=== PATIENT | female | born 1970 | race Caucasian/White ===

== ENCOUNTER → 2019-05-02 | Outpatient (CLI) | payer OTHER ==
[~2019-05-02] MED LIST: CYCL10TA2 PO; IBUP-1027 PO; LIDOCAINE WITH 8.4% SOD BICARB 3 ML DISP.SYRIN. ONE; MULT1TAB52 PO; NORG1TAB70 PO; ZOLP10TA PO
--- NOTE | 2019-05-02 08:45 | RAD ---
ABDOMEN COMPLETE History: Elevated transaminase level. Comparison: None. Technique: Sonographic examination of the abdomen was performed and multiple grayscale and color Doppler static images were obtained. Findings: Liver demonstrates increased echogenicity. The liver measures 20.3 cm. Portal flow is patent Common bile duct measures 4.3 mm in diameter. Prior cholecystectomy. Visualized pancreas is homogeneous. The right kidney measures 11.8 x 4.9 x 4.0 cm. No hydronephrosis. The left kidney measures 11.1 x 5.6 x 5.6 cm. No hydronephrosis. The spleen measures 11.3 cm. Visualized portions of the abdominal aorta and IVC are normal. IMPRESSION: 1. Hepatomegaly with increased echotexture, may indicate steatosis. Electronically signed by: Manuel Moon DO (05/02/2019 8:42 AM) [id number]
== END | disposition home or self-care (01) ==
LOC: US 08:46
PROVIDERS: ATTEND Family Medicine
DX: R16.0 Hepatomegaly, not elsewhere classified (principal); Z90.49 Acquired absence of other specified parts of digestive tract
CPT/HCPCS: 76700

== ENCOUNTER → 2020-09-23 | Outpatient (CLI) | payer OTHER ==
[~2020-09-23] MED LIST changes: -LIDOCAINE WITH 8.4% SOD BICARB 3 ML DISP.SYRIN. ONE; +MULT-445 PO; -MULT1TAB52 PO
--- NOTE | 2020-09-23 15:27 | KCIC ---
EXAM: Cervical spine MRI without contrast. HISTORY: Left upper extremity radiculopathy. TECHNIQUE: Multiplanar, multisequence magnetic resonance imaging of the cervical spine was performed without contrast. COMPARISON: None. FINDINGS: There is mild cervical kyphosis. There is no significant listhesis. There is multilevel end plate remodeling with disc space narrowing and osteophytosis. There are few small endplate Schmorl's nodes. There is no suspicious osseous lesion. There is no acute or subacute fracture. The posterior f emil is unremarkable. No convincing spinal cord lesion is seen. At C2-C3, there is mild left facet arthropathy. There is no stenosis. At C3-C4, there is a minimal posterior central disc protrusion. There is mild left facet arthropathy. There is no stenosis. At C4-C5, there is a minimal posterior central disc protrusion superimposed on endplate remodeling. T here is to moderate left facet arthropathy. There is no stenosis. At C5-C6, there is a broad-based posterior disc protrusion superimposed on a disc bulge and endplate osteophytosis. There is uncovertebral arthropathy. There is flattening of the ventral aspect of the s scout cord and mild central canal stenosis measuring 8.2 mm in anterior posterior dimension. At C6-C7, there is a broad-based left paracentral to lateral recess disc protrusion superimposed on a disc bulge and endplate osteophytosis. There is uncovertebral arthropathy. There is mild flattening of the left ventral aspect of the spinal cord and mild central canal stenosis measuring 7.7 mm in ant erior posterior dimension. At C7-T1 there is a left lateral recess to foraminal disc protrusion superimposed on a disc bulge and endplate osteophytosis. There is uncovertebral arthropathy. There is left lateral recess stenosis an d moderate inferior left foraminal stenosis. IMPRESSION: Multilevel degenerative change involving the cervical spine, described in detail above. This in mild central canal stenosis at C5-C6 and C6-C7 and effacement of the left lateral recess and moderate infe rior left foraminal stenosis at C7-T1. Electronically signed by: Meenakshi Coe MD (09/23/2020 3:25 PM) [id number]
== END ==
LOC: KCIC MRI 14:33
PROVIDERS: ATTEND Family Medicine
DX: M47.22 Other spondylosis with radiculopathy, cervical region (principal); M48.02 Spinal stenosis, cervical region
CPT/HCPCS: 72141

== ENCOUNTER → 2020-10-08 | Outpatient (CLI) | payer OTHER ==
[~2020-10-08] MED LIST changes: +CETI10TA74 PO; +DOXY25TA49 PO; +HYDR-2769 PO; +LEVO75TA5 PO; +SERT100T PO; +TRAM50TA PO
--- NOTE | 2020-10-08 09:01 | PDOC1 ---
INITIAL PAIN CONSULT DATE OF SERVICE: DOS: DATE: 10/08/20 TIME: 08:55 CHIEF COMPLAINT: Chief Complaint: Neck and left upper extremity pain HISTORY OF PRESENT ILLNESS: 50-year-old female presents with history of pain base the neck and left shoulder left upper extremity left arm and hand for about 1 to 2 months, not the result of any specific injury or accident that she is aware but getting worse with time repetitive motions are aggravating the pain as well as lifting weightbearing and reaching especially reaching her hand above the level of her shoulder on the left side patient reports difficult for her to drive do any repetitive motions reaching lifting and difficulty sleeping wakes her from sleep least 3-4 times a night patient reports is not effective bowel bladder control or ability to walk is coming much more tender patient has had chiropractic treatment in the past as well as exercise also physical therapy and she is currently doing the exercises from those physical therapies currently and doing them daily especially stretching and strengthening of the left arm but is not been helping the pain is actually making it slightly worse patient reports he is taking ibuprofen as well as Tylenol has not been effectively helpful also tramadol and hydrocodone both of which do help and she is taking both of those as most recently as today. Patient has had some injections in the past about 2013 which were helpful as we ll. Patient rates her disability rating 0-10 10 being the worst as a 7 with family home responsibilities and social activity 10 with recreation 9 with occupation 10 with self-care and fourth life support activities. Patient did have an MRI scan of the cervical spine showing degenerative changes mild central canal stenosis C5-6 and C6-7 effacing the left lateral recess and moderate inferior left foraminal stenosis at C6-7 and C7-T1. PAST MEDICAL HISTORY: PMH: Dizziness, arthritis, hypothyroidism PREVIOUS SURGERIES: Past Surgical Hx: Tonsillectomy, cholecystectomy CURRENT MEDICATIONS: Current Meds: Active Scripts Medications Dose Route/Sig Max Daily Dose Days Date Category Multivitamins (Multivitamin) 1 Each Tablet 1 Tab PO DAILY 05/08/14 Reported Ortho Tri-Cyclen (Norgestimate-Ethinyl Estradiol) 1 Each Tablet 1 Each PO DAILY 05/08/14 Reported Cyclobenzaprine Hcl 10 Mg Tablet 10 Mg PO TID PRN 05/08/14 Reported Ambien (Zolpidem Tartrate) 10 Mg Tablet 10 Mg PO HS PRN 05/08/14 Reported Ibuprofen 400 Mg Tablet 600 Mg PO TID 05/08/14 Reported ALLERGIES; Allergies: Coded Allergies: codeine (Unverified Allergy, Severe, Nausea and Vomiting rash, 05/08/14) cephalexin (Unverified Allergy, Unknown, rash vomiting, 05/08/14) FAMILY HISTORY: Family Hx: Thyroid disease, depression SOCIAL HISTORY: Social Hx: Patient drinks alcohol occasionally but only about 3 times a year, does not use any illegal illicit recreational drugs does not smoke is lives with her spouse lives locally in [facility]. REVIEW OF SYSTEMS: ROS: Positive for those items mentioned in history of present illness, all systems are reviewed, otherwise negative ,and are complete full and well-documented on patient's chart. PHYSICAL EXAM: VS: Blood pressure is 132/86 pulse 81 respirations 18 temperature 97.7 patient is 5 feet 3 inches weight is 234 pounds PE: PHYSICAL EXAMINATION: GENERAL: The patient is awake, alert, oriented, appropriate, very pleasant demeanor HEENT: Shows normocephalic, atraumatic. Extraocular movements are intact and symmetrical. Oral cavity: Mucous membranes moist and pink. Dentition is intact. NECK: Shows anterior throat supple without palpable lymphadenopathy noted. Swa llow reflex symmetrical. CHEST: Shows normal on inspection. Breath sounds are clear bilaterally, no rales rhonchi wheezes auscultated. HEART: Shows S1, S2 clear. No murmurs auscultated. ABDOMEN: Soft, nontender, nondistended, obese. No palpable organomegaly is noted. No rebound or guarding demonstrated. BACK: Shows spine grossly in the midline. Normal-appearing cervical lordotic curvature. Cervical paraspinous muscles show symmetrical with inspection, on palpation some moderate tenderness diffusely in the inferior aspect cervical paraspinous musculature left greater than right also into the superior medial trapezius on the left but no trigger points no atrophy hypertrophy or asymmetry. Patient shows full rotation of motion cervical spine with some moderate tenderness with far left lateral rotation past 45 degrees as well as with extension but not with forward flexion or right lateral rotation. There is slightly increased thoracic kyphosis, some minor flattening of the lumbar lordotic curvature. EXTREMITIES: Upper extremities show deep tendon reflexes 2+ in the biceps and triceps tendons. Motor exam is 5 on a scale of 5 with right strength, biceps and triceps flexion and 4/5 on the left. Peripheral pulses are 2+ radial. No peripheral edema is noted bilaterally. Upper extremities are warm and dry to touch, equal in color and appearance. Shoulder shrug strong and intact without loss strength on resistance as is abduction of the shoulder 90 degrees without loss of resistance but with some moderate tenderness reported on the left side only. SKIN: Shows warm and dry, good turgor. No edema. No sores, rashes or bruising throughout. IMPRESSION: Impression: 50-year-old female approximately 1 to 2-month history of increasing pain base of neck left upper extremity in a radicular fashion following a C6-7 dermatomal distribution. MRI scan cervical spine as noted Arthritis Dizziness Obesity Plan: Options were discussed the patient. Conservative management is continued physical therapies interventional techniques. Patient is doing physical therapy is currently and has tried multiple medications she is interested in interventional techniques. We discussed a cervical epidural steroid injection using descriptions as well as anatomical models to describe the procedure. Patient will wait for preauthorization with her insurance provider, once this is obtained when to return for translaminar C6-7 level cervical epidural steroid injection at that time. In the meantime patient will continue with stretching strength exercise as well as oral analgesics and anti-inflammatories as currently. ARABELLA SINGH MD Oct 08, 2020 09:01
== END | disposition home or self-care (01) ==
LOC: PNCL 08:18
PROVIDERS: ATTEND Anesthesiology
DX: M54.2 Cervicalgia (principal); M79.602 Pain in left arm; E03.9 Hypothyroidism, unspecified; E66.9 Obesity, unspecified; M19.90 Unspecified osteoarthritis, unspecified site; Z90.49 Acquired absence of other specified parts of digestive tract; Z98.890 Other specified postprocedural states; Z88.5 Allergy status to narcotic agent; Z88.1 Allergy status to other antibiotic agents; Z79.899 Other long term (current) drug therapy
CPT/HCPCS: 99214; G0463

== ENCOUNTER → 2020-11-06 | Outpatient (CLI) | payer OTHER ==
--- NOTE | 2020-11-06 08:37 | PDOC ---
Progress Note - Pain Clinic Date of Service: DOS: DATE: 11/06/20 TIME: 08:32 Diagnosis: Dx: Cervical radiculopathy with cervical degenerative disease and cervical spinal stenosis History or Present Illness: HPI: 50-year-old female returns for follow-up status post cervical epidural injection x1. Patient reports about 60% improvement in the neck and left upper extremity pain returning after she returned to work about 2 weeks later. Patient reports for that she was doing much better with the left upper extremity pain and was using her arm with much more improvement in strength as well as mobility. Patient reports the pain is returning now base the neck shoulder on the left side left arm posterior deltoid into the trapezius into the posterior and anterior forearm and thumb and first and second fingers with some tingling and numbness as well patient describes aching in the neck tight in the neck tingling in the arm and hand radiating as described. Patient reports the pain is a 9 on scale 10 is worst over the past week 5 "3 its least is a 3 today. Patient reports prior to that she was doing much better with work activities, sleeping well. Patient is taking new medication Aleve instead of ibuprofen which seems to be doing better taking it twice daily. We discussed other medications and will also add tramadol as she has a 30-day restriction on when she can get another injection to like to proceed with that in the meantime we will prescribe tramadol with instructions side effects to be aware of discussed. Physical Exam: VS: Blood pressure is 134/84 pulse 85 respirations 18 temperature is 98.4 F height is 5 feet 3 inches weight is 237 pounds PE: PHYSICAL EXAMINATION: GENERAL: The patient is awake, alert, oriented, appropriate, very pleasant in demeanor HEENT: Shows normocephalic, atraumatic. Extraocular movements are intact and symmetrical. Oral cavity: Mucous membranes moist and pink. Dentition is intact. NECK: Shows anterior throat supple without palpable lymphadenopathy noted. Swallow reflex symmetrical. CHEST: Shows normal on inspection. Breath sounds are clear bilaterally, no rales rhonchi wheeze also. HEART: Shows S1, S2 clear. No murmurs auscultated. ABDOMEN: Soft, nontender, nondistended, obese. BACK: Shows spine grossly in the midline. Normal-appearing cervical lordotic curvature. Cervical paraspinous muscles show symmetrical inspection, on palpation some moderate tenderness diffusely throughout the upper and middle and lower's region paraspinous muscles more on the left than the right without specific trigger points atrophy hypertrophy. Patient shows good rotation motion cervical spine both laterally greater than 45 degrees as well as full extension full forward flexion with only minor pain in the left inferior aspect of the cervical paraspinous musculature without radiation. There is slightly increased thoracic kyphosis, some minor flattening of the lumbar lordotic curvature. EXTREMITIES: Upper extremities show deep tendon reflexes 2+ in the biceps and triceps tendons. Motor exam is 5 on a scale of 5 with right ingot weigher strength, biceps and triceps flexion and 4/5 on the left. Peripheral pulses are 2+ radial. No peripheral edema is noted bilaterally. Upper extremities are warm and dry to touch, equal in color and appearance. SKIN: Shows warm and dry, good turgor. No edema. No sores, rashes or bruising throughout. Procedure: Procedure: Options discussed with the patient. Patient's old chart was reviewed as her current medication regimen updated current view of systems updated today as well. We will preauthorize patient for second cervical epidural steroid injection she did very well after the first injection with pain returning now after work activities resumed and initially had excellent relief but with clinical C6-7 dermatomal distribution radiculopathy returning in the left upper extremity. Again, we will add tramadol and will E scribe this today with instructions side effects aware of discussed. Patient will follow up once preauthorization is obtained we will plan on translaminar approach at the C6-7 level for cervical epidural steroid injection with fluoroscopic guidance. Medication Injected: Med Injected: None Condition at Discharge: Condition at Discharge: Condition at discharge stable. ARABELLA SINGH MD Nov 06, 2020 08:37
== END | disposition home or self-care (01) ==
LOC: PNCL 08:04
PROVIDERS: ATTEND Anesthesiology
DX: M50.10 Cervical disc disorder with radiculopathy, unspecified cervical region (principal); M48.02 Spinal stenosis, cervical region; Z79.899 Other long term (current) drug therapy; Z88.1 Allergy status to other antibiotic agents; Z88.5 Allergy status to narcotic agent
CPT/HCPCS: 99212; G0463

== ENCOUNTER → 2020-11-24 | Outpatient (CLI) | payer OTHER ==
[~2020-11-24] MED LIST changes: +methylPREDNISolone ACETATE 40 MG/ML VIAL. ONE; +methylPREDNISolone ACETATE 80 MG/ML VIAL. ONE
--- NOTE | 2020-11-24 08:51 | PDOC ---
Progress Note - Pain Clinic Date of Service: DOS: DATE: 11/24/20 TIME: 08:48 Diagnosis: Dx: Cervical radiculopathy with cervical degenerative disc disease and cervical spinal stenosis History or Present Illness: HPI: 50-year-old female returns for follow-up status post cervical epidural steroid injection x1. Patient reports about 60% improvement with pain returning now and had been preauthorized for an additional injection patient reports pain is changed somewhat is is more of a aching pain in the left arm tingling in the hand on the left side radiating posterior deltoid posterior triceps and the biceps and forearm in the posterior aspect of the forearm into the hand with numbness and tingling in the fingers patient reports its radiating on and off in intensity worse with activity standing reaching weightbearing also driving patient was doing better she went on a driving trip few days ago reports that the pain was significantly returned patient rates as a 9 on scale 10 is worse over the past week 5 on average to its least is a 5 today. Patient reports no new motor or sensory deficits. Physical Exam: VS: Blood pressure is 133/84 pulse 75 respirations 18 temperature 98.1 F height is 5 feet 3 inches weight is 238 pounds PE: PHYSICAL EXAMINATION: GENERAL: The patient is awake, alert, oriented, appropriate, very pleasant in demeanor HEENT: Shows normocephalic, atraumatic. Extraocular movements are intact and symmetrical. Oral cavity: Mucous membranes moist and pink. Dentition is intact. NECK: Shows anterior throat supple without palpable lymphadenopathy noted. Swallow reflex symmetrical. CHEST: Shows normal on inspection. Breath sounds are clear bilaterally, distant but no rales or rhonchi. HEART: Shows S1, S2 clear. No murmurs auscultated. ABDOMEN: Soft, nontender, nondistended, obese. No palpable organomegaly is noted. BACK: Shows spine grossly in the midline. Normal-appearing cervical lordotic curvature. Cervical paraspinous muscles show symmetrical with inspection, on palpation some moderate tenderness diffusely in inferior aspect cervical paraspinous muscular bilaterally more on the left than right but without atrophy hypertrophy or asymmetry and no trigger points identified. Patient shows good rotation of motion cervical spine with lateral as well as full extension full forward flexion without significant difficulty. There is slightly increased thoracic kyphosis, some minor flattening of the lumbar lordotic curvature. EXTREMITIES: Upper extremities show deep tendon reflexes 2+ in the biceps and triceps tendons. Motor exam is 5 on a scale of 5 with right direct sales representative, biceps and triceps flexion and 4/5 on the left. Peripheral pulses are 2 radial. No peripheral edema is noted bilaterally. Upper extremities are warm and dry to touch, equal in color and appearance. SKIN: Shows warm and dry, good turgor. No edema. No sores, rashes or bruising throughout. Procedure: Procedure: Options discussed with the patient. Patient chart reviews her current medication regimen updated current review of systems updated today as well. We will proceed with a cervical epidural steroid injection today with fluoroscopic guidance. Risks were discussed including but not limited to: Bleeding, infection, possibility of epidural hematoma and subsequent neurological compromise, dural puncture, headaches, spinal cord and/or nerve damage, side effects of steroid medication, and poor results regarding pain control. Patient understands and wished to proceed. Patient will return to clinic in approximate 2 weeks for follow-up, was counseled as return appointment active level and side effects to be aware of. Medication Injected: Med Injected: Procedure cervical epidural steroid injection at the C6-7 level, using local anesthetic under sterile prep and drape using C-arm fluoroscopic guidance under local anesthesia medications injected ;120 mg Depo-Medrol +5 mL normal saline and 2 mL contrast; condition at discharge is stable patient tolerated procedure well. and had no complications Condition at Discharge: Condition at Discharge: Condition at discharge stable, patient already procedure well and had no complications. ARABELLA SINGH MD Nov 24, 2020 08:51
--- NOTE | 2020-11-24 08:52 | PDOC4 ---
Procedure Note: ICD 10 Code: ICD 10 Code: M54.12 M 48.02 M50.30 Procedure Note: Patient was consented for cervical epidural steroid injection with fluoroscopic guidance. Risks were discussed including but not limited to: Bleeding, infection, possibility of epidural hematoma and subsequent neurological compromise, dural puncture, headaches, spinal cord and/or nerve damage, side effects of steroid medication, and poor results regarding pain control. Patient understands and wished to proceed. Procedure cervical epidural steroid injection at the C6-7 level, using local anesthetic under sterile prep and drape using C-arm fluoroscopic guidance under local anesthesia medications injected ;120 mg Depo-Medrol +5 mL normal saline and 2 mL contrast; condition at discharge is stable patient tolerated procedure well. and had no complications ARABELLA SINGH MD Nov 24, 2020 08:52
== END | disposition home or self-care (01) ==
LOC: PNCL 07:59
PROVIDERS: ATTEND Anesthesiology
DX: M50.10 Cervical disc disorder with radiculopathy, unspecified cervical region (principal); M48.02 Spinal stenosis, cervical region; Z79.899 Other long term (current) drug therapy; Z88.1 Allergy status to other antibiotic agents; Z88.5 Allergy status to narcotic agent
CPT/HCPCS: 62321; J1030; J1040

== ENCOUNTER → 2020-12-09 | Outpatient (CLI) | payer OTHER ==
[~2020-12-09] MED LIST changes: -methylPREDNISolone ACETATE 40 MG/ML VIAL. ONE; -methylPREDNISolone ACETATE 80 MG/ML VIAL. ONE
--- NOTE | 2020-12-09 09:32 | PDOC ---
Progress Note - Pain Clinic Date of Service: DOS: DATE: 12/09/20 TIME: 09:29 Diagnosis: Dx: Cervical radiculopathy with cervical degenerative disc disease and cervical spinal stenosis History or Present Illness: HPI: 50-year-old female returns for follow-up status post cervical epidural steroid injection x2. 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 Patient reports no new motor or sensory deficits no bowel or bladder incontinence. Physical Exam: VS: Blood pressure is 135/90 pulse 85 respirations 18 temperature 90.5 F height 5 feet 3 inches weight is 240 pounds PE: PHYSICAL EXAMINATION: GENERAL: The patient is awake, alert, oriented, appropriate, very pleasant in demeanor HEENT: Shows normocephalic, atraumatic. Extraocular movements are intact and symmetrical. Oral cavity: Mucous membranes moist and pink. Dentition is intact. NECK: Shows anterior throat supple without palpable lymphadenopathy noted. Swallow reflex symmetrical. CHEST: Shows normal on inspection. Breath sounds are clear bilaterally, no rales rhonchi or wheezes auscultated. HEART: Shows S1, S2 clear. No murmurs auscultated. ABDOMEN: Soft, nontender, nondistended, obese. No palpable organomegaly is noted. BACK: Shows spine grossly in the midline. Normal-appearing cervical lordotic curvature. Cervical paraspinous muscles show symmetrical inspection with palpation some moderate tenderness diffusely in the middle and inferior aspect of the cervical paraspinous musculature more the left than the right but without significant radiation without trigger points or asymmetry. Patient shows full rotation of motion cervical spine both laterally as well as full extension full forward flexion without significant difficulty. There is slightly increased thoracic kyphosis, some minor flattening of the lumbar lordotic curvature. EXTREMITIES: Upper extremities show deep tendon reflexes 2+ in the biceps and triceps tendons. Motor exam is 5 on a scale of 5 with right licensed weigher, biceps and triceps flexion and 4/5 on the left. Peripheral pulses are 2+ radial. No peripheral edema is noted bilaterally. Upper extremities are warm and dry to touch, equal in color and appearance. SKIN: Shows warm and dry, good turgor. No edema. No sores, rashes or bruising throughout. Procedure: Procedure: Options discussed with the patient. Patient's old chart was reviewed as her current medication regimen updated current review of systems updated today as well. We will hold on any further injections at this time as patient doing much better. Patient was encouraged increase activity as tolerated maintain stretching strength exercises as well as oral analgesics as currently. At this time patient will follow up on as-needed basis. Medication Injected: Med Injected: None Condition at Discharge: Condition at Discharge: Condition at discharge is stable. ARABELLA SINGH MD Dec 09, 2020 09:32
== END ==
LOC: PNCL 08:54
PROVIDERS: ATTEND Anesthesiology
DX: M48.02 Spinal stenosis, cervical region (principal); M50.10 Cervical disc disorder with radiculopathy, unspecified cervical region
CPT/HCPCS: 99212; G0463

== ENCOUNTER → 2021-06-18 | Outpatient (CLI) | payer OTHER ==
[~2021-06-18] MED LIST changes: +CYCL10TA19 PO; -CYCL10TA2 PO
--- NOTE | 2021-06-18 11:22 | PDOC ---
Progress Note - Pain Clinic Date of Service: DOS: DATE: 06/18/21 TIME: 11:17 Diagnosis: Dx: Cervical radiculopathy with cervical degenerative disease and cervical spinal stenosis History or Present Illness: HPI: 50-year-old female presents with complaints of pain base the neck and left upper extremity and posterior shoulder patient reports is getting worse with repetitive motions lifting weightbearing and reaching overhead with the left arm patient reports it wakes her from sleep at least 2-3 times a night reports is aching and sharp in the base the neck shooting in the left arm into the fingers and with numbness and tingling in the thumb and first finger patient report is radiating constant can be severe at times as well also some tingling in the third and fourth fingers as well as the pinky at times patient reports is a 10 on scale 10 is worse over the past week 8 on average 4 to [place] is an 8 t mery. Patient reports loss of function but significant fatigability the left arm with repetitive motions especially driving the car with her left arm on the steering wheel. Reviewed patient's MRI scan showing C6-7 broad-based left paracentral to lateral recess disc retrusion superimposed on disc bulge endplate osteophytosis with mild central canal stenosis also C7-T1 lateral recess to the left foraminal disc protrusion superimposed on disc bulge and endplate osteophytosis as well. Patient has been doing stretching and strengthening exercises which she had learned at physical therapy in the past as well as heat and massage techniques for the shoulder and arm but without significant reduction in pain. Patient is been taking hydrocodone which is helpful also additional Tylenol and Motrin which helps by about 25% as well. Patient reports no loss of motor function again but significant fatigability with the left upper extremity Physical Exam: VS: Blood pressure is 132/86 pulse 80 respirations 16 temperature 90.60 Fahrenheit height is 5 foot 3 inches weight is 232 pounds. PE: PHYSICAL EXAMINATION: GENERAL: The patient is awake, alert, oriented, appropriate, very pleasant in demeanor HEENT: Shows normocephalic, atraumatic. Extraocular movements are intact and symmetrical. Patient wearing eyeglasses. Oral cavity: Mucous membranes moist and pink. NECK: Shows anterior throat supple without palpable lymphadenopathy noted. Swallow reflex symmetrical. CHEST: Shows normal on inspection. Breath sounds are clear bilaterally, no rales rhonchi or wheezes auscultated. HEART: Shows S1, S2 clear. No murmurs auscultated. ABDOMEN: Soft, nontender, nondistended. No palpable organomegaly is noted. BACK: Shows spine grossly in the midline. Normal-appearing cervical lordotic curvature. Cervical paraspinous muscles show symmetrical inspection, palpation some moderate tenderness diffusely bilaterally diffusely without significant radiation. Patient shows good rotation motion was of moderate tenderness with extension but not with forward flexion right or left lateral rotation. There is slightly increased thoracic kyphosis, some minor flattening of the lumbar lordotic curvature. EXTREMITIES: Upper extremities show deep tendon reflexes 2+ in the biceps and triceps tendons. Motor exam is 5 on a scale of 5 with right shot core drill operator helper, biceps and triceps flexion and 4/5 on the left. Peripheral pulses are 2+ radial. No peripheral edema is noted bilaterally. Upper extremities are warm and dry to touch, equal in color and appearance. SKIN: Shows warm and dry, good turgor. No edema. No sores, rashes or bruising throughout. Procedure: Procedure: Options were discussed with the patient. Patient's report was reviewed as her current medication regimen updated current review of systems updated today as well. We will preauthorize patient for a cervical epidural steroid injection as she has significant clinical radiculopathy in a C6-7 dermatomal distribution in the left upper extremity. The meantime, patient continue with stretching strength exercises heat and massage applications as well as oral analgesics and hydrocodone as currently. Once approved, patient will return to clinic for translaminar approach C6-7 level fluoroscopic guided cervical epidural steroid injection. Medication Injected: Med Injected: None Condition at Discharge: Condition at Discharge: Condition at discharge is stable. ARABELLA SINGH MD Jun 18, 2021 11:22
== END | disposition home or self-care (01) ==
LOC: PNCL 10:34
PROVIDERS: ATTEND Anesthesiology
DX: M50.10 Cervical disc disorder with radiculopathy, unspecified cervical region (principal); M48.02 Spinal stenosis, cervical region; Z79.899 Other long term (current) drug therapy; Z88.1 Allergy status to other antibiotic agents; Z88.8 Allergy status to other drugs, medicaments and biological substances
CPT/HCPCS: 99212; G0463

== ENCOUNTER → 2021-07-05 | Outpatient (CLI) | payer OTHER ==
[~2021-07-05] MED LIST changes: +DEXAMETHASONE PRES.FREE 10 MG/ML VIAL. ONE; +IOHEXOL 180 MG/ML 10 ML VIAL. ONE
--- NOTE | 2021-07-05 10:20 | PDOC ---
Progress Note - Pain Clinic Date of Service: DOS: DATE: 07/05/21 TIME: 10:16 Diagnosis: Dx: Cervical radiculopathy with cervical degenerative disc disease and cervical spinal stenosis History or Present Illness: HPI: 51-year-old female returns for follow-up status post evaluation and preauthorization for cervical epidural steroid injection. Patient reports still significant pain rating the left upper extremity and shoulder as it was previously patient reports no motor or sensory deficits patient rates her pain a 9 on scale 10 is worse over the past week 6 on average to its least and is a 6 today patient reports is aching and sharp shooting and radiating can be constant unbearable with repetitive motions reaching overhead with her left arm weightbearing with left arm and reaching forward with the left arm with weightbearing. Patient reports no loss of motor function but significant fatigability of the left upper extremity once again. Patient reports the right side is without deficit without pain or lack of ability. Physical Exam: VS: Blood pressure is 141/84 pulse 72 respirations 18 temperature is 98.6 F height is 5 feet 3 inches weight is 231 pounds. PE: PHYSICAL EXAMINATION: GENERAL: The patient is awake, alert, oriented, appropriate, very pleasant in demeanor HEENT: Shows normocephalic, atraumatic. Extraocular movements are intact and symmetrical. Oral cavity: Mucous membranes moist and pink. NECK: Shows anterior throat supple without palpable lymphadenopathy noted. Swallow reflex symmetrical. CHEST: Shows normal on inspection. Breath sounds are clear bilaterally, no rales or rhonchi auscultated. HEART: Shows S1, S2 clear. No murmurs auscultated. ABDOMEN: Soft, nontender, nondistended. No palpable organomegaly is noted. BACK: Shows spine grossly in the midline. Normal-appearing cervical lordotic curvature. Cervical paraspinous muscles show symmetrical inspection, on palpation some moderate tenderness diffusely bilaterally diffusely without significant radiation. Patient has good rotation motion cervical spine both laterally as well as extension and flexion. There is slightly increased thoracic kyphosis, some minor flattening of the lumbar lordotic curvature. EXTREMITIES: Upper extremities show deep tendon reflexes 2+ in the biceps and triceps tendons. Motor exam is 5 on a scale of 5 with right optical glass inspector, biceps and triceps flexion and 4/5 on the left. Peripheral pulses are 2+ radial. No peripheral edema is noted bilaterally. Upper extremities are warm and dry to touch, equal in color and appearance. SKIN: Shows warm and dry, good turgor. No edema. No sores, rashes or bruising throughout. Procedure: Procedure: Options were discussed with the patient. Patient's old heart was reviewed as her current medication regimen updated current review of systems updated today as well. We will proceed with a cervical epidural steroid injection today with fluoroscopic guidance. Risks were discussed including but not limited to: Bleeding, infection, possibility of epidural hematoma and subsequent neurological compromise, dural puncture, headaches, spinal cord and/or nerve damage, side effects of steroid medication, and poor results regarding pain control. Patient understands and wished to proceed. Patient return to the clinic in approximate 4 weeks for follow-up, was counseled as to return appointment, activity level, and side effect to be aware of. Medication Injected: Med Injected: Procedure cervical epidural steroid injection at the C6-7 level, using local anesthetic under sterile prep and drape using C-arm fluoroscopic guidance under local anesthesia medications injected ; 20 mg dexamethasone +5 mL normal saline and 2 mL contrast; condition at discharge is stable patient tolerated procedure well. and had no complications. Condition at Discharge: Condition at Discharge: Condition at discharge is stable, patient tolerated the procedure well had no complications. ARABELLA SINGH MD Jul 05, 2021 10:20
--- NOTE | 2021-07-05 10:21 | PDOC4 ---
Procedure Note: ICD 10 Code: ICD 10 Code: M54.12 M50.30 M4 8.02 Procedure Note: Patient was consented for cervical epidural steroid injection with fluoroscopic guidance. Risks were discussed including but not limited to: Bleeding, infection, possibility of epidural hematoma and subsequent neurological compromise, dural puncture, headaches, spinal cord and/or nerve damage, side effects of steroid medication, and poor results regarding pain control. Patient understands and wished to proceed. Procedure cervical epidural steroid injection at the C6-7 level, using local anesthetic under sterile prep and drape using C-arm fluoroscopic guidance under local anesthesia medications injected ; 20 mg dexamethasone +5 mL normal saline and 2 mL contrast; condition at discharge is stable patient tolerated procedure well. and had no complications ARABELLA SINGH MD Jul 05, 2021 10:20
== END | disposition home or self-care (01) ==
LOC: PNCL 09:23
PROVIDERS: ATTEND Anesthesiology
DX: M50.10 Cervical disc disorder with radiculopathy, unspecified cervical region (principal); M48.02 Spinal stenosis, cervical region; M54.12 Radiculopathy, cervical region; Z79.82 Long term (current) use of aspirin; Z79.899 Other long term (current) drug therapy; Z88.1 Allergy status to other antibiotic agents; Z88.8 Allergy status to other drugs, medicaments and biological substances
CPT/HCPCS: 62321; J1100; Q9965

== ENCOUNTER → 2021-08-09 | Outpatient (CLI) | payer OTHER ==
[~2021-08-09] MED LIST changes: -DEXAMETHASONE PRES.FREE 10 MG/ML VIAL. ONE; -IOHEXOL 180 MG/ML 10 ML VIAL. ONE
--- NOTE | 2021-08-09 11:43 | PDOC ---
Progress Note - Pain Clinic Date of Service: DOS: DATE: 08/09/21 TIME: 11:37 Diagnosis: Dx: Cervical radiculopathy with cervical degenerative disease and cervical spinal stenosis History or Present Illness: HPI: 51-year-old female returns for follow-up status post cervical epidural steroid injection x1. Patient reports 90% improvement for the first 4 weeks following the injection patient reports the pain is beginning to return however the base the neck and the left upper extremity posterior scapular region into the anteri or bicep and tricep forearm and into the hand and fingers with numbness and tingling in the fingers as well as motion of the thumb and first and second fingers patient reports no loss of motor function but significant tingling and discomfort with repetitive motions. Patient continues to do stretching and strength exercises through physical therapy recommendations and is doing these on her own now, daily but with still significant pain in the left upper extremity. Patient rates her pain as a 9 on scale 10 is worse over the past week 5 on average 3 to [place] is a 5 today. Patient describes stabbing aching and tight in the neck radiating shooting the left upper extremity. Patient reports a loss of motor function with significant fatigability of the left upper extremity. Patient continues to take cyclobenzaprine as well as ibuprofen and hydrocodone occasionally which also do decrease the pain extent but is not controlling it adequately over the past week or so. Physical Exam: VS: Blood pressure is 135/70 pulse 53, respirations 18 temperature 97.5 F height is 5 foot 3 inches weight is 234 pounds. PE: PHYSICAL EXAMINATION: GENERAL: The patient is awake, alert, oriented, appropriate, very pleasant in de meanor HEENT: Shows normocephalic, atraumatic. Extraocular movements are intact and symmetrical. Oral cavity: Mucous membranes moist and pink. Dentition is intact. NECK: Shows anterior throat supple without palpable lymphadenopathy noted. Swallow reflex symmetrical. CHEST: Shows normal on inspection. Breath sounds are clear bilaterally, no rales rhonchi or wheezes auscultated. HEART: Shows S1, S2 clear. No murmurs auscultated. ABDOMEN: Soft, nontender, nondistended. No palpable organomegaly is noted. BACK: Shows spine grossly in the midline. Normal-appearing cervical lordotic curvature. Cervical paraspinous muscles show symmetrical with inspection, on palpation some moderate tenderness diffusely but only diffusely in the inferior aspect cervical paraspinous musculature bilaterally. Patient shows full rotation motion cervical spine both laterally as well as extension flexion without significant limitation or pain reported. There is slightly increased thoracic kyphosis, some minor flattening of the lumbar lordotic curvature. EXTREMITIES: Upper extremities show deep tendon reflexes 2+ in the biceps and triceps tendons. Motor exam is 5 on a scale of 5 with right gas plant technician, biceps and triceps flexion and 4/5 on the left. Peripheral pulses are 2+ radial. No peripheral edema is noted bilaterally. Upper extremities are warm and dry to touch, equal in color and appearance. Shoulder shrug is strong and intact without loss of strength on resistance bilaterally as is abduction of the shoulders at 90 degrees bilaterally. SKIN: Shows warm and dry, good turgor. No edema. No sores, rashes or bruising throughout. Procedure: Procedure: Options were discussed with the patient. Patient's old chart was reviewed as her current medication regimen updated current review of systems updated today as well. We will preauthorize patient for cervical epidural steroid injection she did very well with the first injection with the pain returning now in a C6-7 dermatomal distribution in the left upper extremity. Once approved, patient will return for translaminar approach C6-7 level cervical epidural steroid injection with fluoroscopic guidance. In the meantime, patient continue with oral analgesics as currently as well as stretching 3 exercises daily. Medication Injected: Med Injected: None Condition at Discharge: Condition at Discharge: Condition at discharge is stable. ARABELLA SINGH MD Aug 09, 2021 11:43
== END | disposition home or self-care (01) ==
LOC: PNCL 10:42
PROVIDERS: ATTEND Anesthesiology
DX: M50.10 Cervical disc disorder with radiculopathy, unspecified cervical region (principal); M48.02 Spinal stenosis, cervical region; Z79.899 Other long term (current) drug therapy; Z88.1 Allergy status to other antibiotic agents; Z88.5 Allergy status to narcotic agent
CPT/HCPCS: 99212; G0463

== ENCOUNTER → 2021-08-23 | Outpatient (CLI) | payer OTHER ==
[~2021-08-23] MED LIST changes: +DEXAMETHASONE PRES.FREE 10 MG/ML VIAL. ONE; +IOHEXOL 180 MG/ML 10 ML VIAL. ONE
--- NOTE | 2021-08-23 10:34 | PDOC ---
Progress Note - Pain Clinic Date of Service: DOS: DATE: 08/23/21 TIME: 10:31 Diagnosis: Dx: Cervical radiculopathy with cervical degenerative disease and cervical spinal stenosis History or Present Illness: HPI: 51-year-old female returns for follow-up status post epidural steroid injection x1. Patient reports she is about 90% improvement of the pain returning on the base the neck shoulder left upper extremity with numbness and tingling in the hand and some weakness as well but no overt motor loss patient reports significa nt fatigability of the left upper extremity the pain radiating the posterior aspect of the scapula into the left upper extremity into the forearm and hand with numbness in all the fingers. Patient reports aching and tight in the neck shooting and sharp in the arm stabbing in the neck radiating can be off on intensity but is present with most activities. Patient reports it wakes her from sleep about once to twice a night as well especially if she sleeps on her left side. Patient reports no motor loss Physical Exam: VS: Blood pressure is 120/77 pulse 75 respirations 18 temperature 98.3 F height is 5 foot 3 inches weight is 232 pounds PE: PHYSICAL EXAMINATION: GENERAL: The patient is awake, alert, oriented, appropriate, very pleasant in demeanor HEENT: Shows normocephalic, atraumatic. Extraocular movements are intact and symmetrical. Oral cavity: Mucous membranes moist and pink. Dentition is intact. NECK: Shows anterior throat supple without palpable lymphadenopathy noted. Swallow reflex symmetrical. CHEST: Shows normal on inspection. Breath sounds are clear bilaterally. HEART: Shows S1, S2 clear. No murmurs auscultated. ABDOMEN: Soft, nontender, nondistended. No palpable organomegaly is noted. BACK: Shows spine grossly in the midline. Normal-appearing cervical lordotic curvature. Cervical paraspinous muscles show symmetrical with inspection, on palpation some moderate tenderness to the bilateral diffusely without significant radiation. Patient shows good rotation motion cervical spine both laterally greater than 45 degrees closer to 90 degrees as well as full extension full forward flexion with only minimal tenderness. There is slightly increased thoracic kyphosis, some minor flattening of the lumbar lordotic curvature. EXTREMITIES: Upper extremities show deep tendon reflexes 2 in the biceps and triceps tendons. Motor exam is 5 on a scale of 5 with right clay dry press helper, biceps and triceps flexion and 4/5 on the left. Peripheral pulses are 2+ radial. No peripheral edema is noted bilaterally. Upper extremities are warm and dry to touch, equal in color and appearance. SKIN: Shows warm and dry, good turgor. No edema. No sores, rashes or bruising throughout. Procedure: Procedure: Options were discussed with the patient. Patient's old chart was reviewed as was her current medication regimen updated currently systems updated today as well. We will proceed with a cervical epidural steroid injection stable fluoroscopic guidance risks were discussed including but not limited to: Bleeding, infection, possibility of epidural hematoma and subsequent n eurological compromise, dural puncture, headaches, spinal cord and/or nerve damage, side effects of steroid medication, and poor results regarding pain control. Patient understands and wished to proceed. Patient will return to clinic in approximately 2 weeks for follow-up, was counseled as return appointment, active level, and side effects to be aware of. Medication Injected: Med Injected: Procedure cervical epidural steroid injection at the C6-7 level, using local anesthetic under sterile prep and drape using C-arm fluoroscopic guidance under local anesthesia medications injected ; 20 mg dexamethasone +5 mL normal saline and 2 mL contrast; condition at discharge is stable patient tolerated procedure well. and had no complications Condition at Discharge: Condition at Discharge: Condition at discharge stable, paced tolerated procedure well and had no complications. ARABELLA SINGH MD August 23, 2021 10:34
--- NOTE | 2021-08-23 10:35 | PDOC4 ---
Procedure Note: ICD 10 Code: ICD 10 Code: M54.12 M50.30 M48.02 Procedure Note: Patient was consented for cervical epidural steroid injection with fluoroscopic guidance. Risks were discussed including but not limited to: Bleeding, infection, possibility of epidural hematoma and subsequent neurological compromise, dural puncture, headaches, spinal cord and/or nerve damage, side effects of steroid medication, and poor results regarding pain control. Patient understands and wished to proceed. Procedure cervical epidural steroid injection at the C6-7 level, using local a nesthetic under sterile prep and drape using C-arm fluoroscopic guidance under local anesthesia medications injected ; 20 mg dexamethasone +5 mL normal saline and 2 mL contrast; condition at discharge is stable patient tolerated procedure well. and had no complications ARABELLA SINGH MD August 23, 2021 10:35
== END | disposition home or self-care (01) ==
LOC: PNCL 09:08
PROVIDERS: ATTEND Anesthesiology
DX: M50.10 Cervical disc disorder with radiculopathy, unspecified cervical region (principal); M48.02 Spinal stenosis, cervical region; M54.12 Radiculopathy, cervical region; Z79.899 Other long term (current) drug therapy; Z88.1 Allergy status to other antibiotic agents; Z88.5 Allergy status to narcotic agent
CPT/HCPCS: 62321; J1100; Q9965

== ENCOUNTER → 2021-09-06 | Outpatient (CLI) | payer OTHER ==
[~2021-09-06] MED LIST changes: -DEXAMETHASONE PRES.FREE 10 MG/ML VIAL. ONE; -IOHEXOL 180 MG/ML 10 ML VIAL. ONE
--- NOTE | 2021-09-06 09:36 | PDOC ---
Progress Note - Pain Clinic Date of Service: DOS: DATE: 09/06/21 TIME: 09:32 Diagnosis: Dx: Cervical radiculopathy with cervical spinal stenosis and cervical degenerative disc disease History or Present Illness: HPI: 51-year-old female returns for follow-up status post cervical epidural steroid injection last seen August 23, 2021 patient did very well with about 90% improvement lasting 2 days today patient reports the pain is significantly reduced in the neck and left upper extremity still some pain rating the posterior aspect of the shoulder on the left side as well as into the arm and hand in a radicular fashion but much better than it was patient reports an 8 on scale 10 is worse over the past week 5 on average 1 its least is a 5 today patient ports aching and tight stabbing base of neck and shoulder into the posterior scapular region also into the left upper extremity triceps biceps into the forearm and hand specially the thumb and first and second fingers with some numbness and tingling as well but much improved from where it was. Patient reports sleeping better at night and increase her activity doing household activities work activities try with greater ease and comfort using her left arm to steer her car much more comfortably and again sleeping better at night. Patient is taking less of her analgesics as well she is taking ibuprofen and has cut back on this significantly since the pain has been reduced. Patient continues to do stretching strength exercises daily patient when she first gets up in the morning feels like this is helpful as well. Patient reports no loss of motor function, but still reports easy fatigability of the left upper extremity with repetitive motion. Physical Exam: VS: Blood pressure is 118/74 pulse 70 respirations 18 temperature is 90.3 F height is 5 feet 3 inches weight is 232 pounds. PE: PHYSICAL EXAMINATION: GENERAL: The patient is awake, alert, oriented, appropriate, very pleasant in demeanor HEENT: Shows normocephalic, atraumatic. Extraocular movements are intact and symmetrical. Oral cavity: Mucous membranes moist and pink. Dentition is intact. NECK: Shows anterior throat supple without palpable lymphadenopathy noted. Swallow reflex symmetrical. CHEST: Shows normal on inspection. Breath sounds are clear bilaterally, no rales or rhonchi auscultated. HEART: Shows S1, S2 clear. No murmurs auscultated. ABDOMEN: Soft, nontender, nondistended. No palpable organomegaly is noted. BACK: Shows spine grossly in the midline. Normal-appearing cervical lordotic curvature. Cervical paraspinous muscles show symmetrical inspection, on palpation some moderate tenderness diffusely in the inferior aspect the cervical paraspinous muscles on the left and in the superior medial trapezius but without atrophy hypertrophy without asymmetry or trigger points. Patient shows full rotation of motion of the cervical spine both laterally as well as extension flexion without significant discomfort. There is slightly increased thoracic kyphosis, some minor flattening of the lumbar lordotic curvature. EXTREMITIES: Upper extremities show deep tendon reflexes 2+ in the biceps and triceps tendons. Motor exam is 5 on a scale of 5 with right physician practice market manager, biceps and triceps flexion and 4/5 on the left. Peripheral pulses are 1+ radial. No peripheral edema is noted bilaterally. Upper extremities are warm and dry to touch, equal in color and appearance. SKIN: Shows warm and dry, good turgor. No edema. No sores, rashes or bruising throughout. Procedure: Procedure: Options discussed with patient. Patient's old chart was reviewed as part medications are updated current review of systems updated today as well. We will preauthorize patient for a cervical epidural steroid injection she did very well with the last injection but 90% improvement still lasting but with some pain in a radicular fashion following a C6-7 dermatomal distribution on the left upper extremity. Patient will continue with stretching strength exercises as well as oral analgesics as currently as necessary. Once approved, patient will return for translaminar approach C6-7 level cervical epidural steroid injection with fluoroscopic guidance. Medication Injected: Med Injected: None Condition at Discharge: Condition at Discharge: Condition at discharge is stable. ARABELLA SINGH MD September 06, 2021 09:36
== END | disposition home or self-care (01) ==
LOC: PNCL 08:59
PROVIDERS: ATTEND Anesthesiology
DX: M50.10 Cervical disc disorder with radiculopathy, unspecified cervical region (principal); M48.02 Spinal stenosis, cervical region; Z79.899 Other long term (current) drug therapy; Z88.1 Allergy status to other antibiotic agents; Z88.5 Allergy status to narcotic agent
CPT/HCPCS: 99212; G0463